=== PATIENT | male | born 1940 | race Caucasian/White ===

== ENCOUNTER 2020-05-17 07:07 | Inpatient (IN) | payer OTHER, SELFPAY ==
[~2020-05-17] VITALS: Ht 167.6 cm; Wt 77.1 kg
[2020-05-17 07:15] VITALS: BP 162/90
[2020-05-17] MEDS ORDERED: NACL 0.9% 1,000 ML IV ONE ×2 (07:25→15:25)
--- NOTE | 2020-05-17 07:45 | NUR ---
79 y/o male from home c/o abd pain with nausea and vomiting x 5 days. Per ems pts family states that he had coffee ground emesis with black tarry stools. States 10/10 mid abd pain. Denies cough/sob. Awake and alert. Positioned for comfort. medhx: HTN, DM
--- NOTE | 2020-05-17 07:46 | NUR ---
Lab drawing blood on patient at this time
[2020-05-17 08:08] LABS: HEMATOCRIT 46.5 % (36-52); HEMOGLOBIN 16.1 g/dL (12.0-18.0); MEAN CORPUSCULAR HEMOGLOBIN 30 pg (27-31); MEAN CORPUSCULAR HGB CONC 35 g/dL (33-37); MEAN CORPUSCULAR VOLUME 87.1 fL (80-94); PLATELET COUNT (AUTO) 212 K/uL (140-450); RED BLOOD CELL COUNT(AUTO) 5.34 MIL/uL (4.20-6.10); RED CELL DISTRIBUTION WIDTH 13.2 % (11.6-13.7); WHITE BLOOD COUNT (AUTO) 21.3 K/uL (4.8-10.8)
[2020-05-17 08:24] LABS: PROTHROMBIN TIME 11.8 secs (10.8-13.4)
[2020-05-17 08:26] LABS: ALBUMIN 3.7 g/dL (3.4-5.0); ANION GAP 19.2 (8-16); ASPARTATE AMINOTRANSFERASE 420 U/L (15-37); CARBON DIOXIDE 23.2 mmol/L (21-32); CHLORIDE 96 mmol/L (98-107); CREATININE 1.9 mg/dL (0.6-1.3); GLUCOSE 259 mg/dL (74-106); POTASSIUM 3.4 mmol/L (3.5-5.1); SODIUM SERUM 135 mmol/L (136-145); TOTAL BILIRUBIN 7.2 mg/dL (0.0-1.0); UREA NITROGEN, BLOOD 28 mg/dL (7-18)
[2020-05-17 08:30] LABS: LYMPHOCYTES % (MANUAL) 4 % (20-46); MONOCYTES % (MANUAL) 4 % (5-12)
[2020-05-17] MEDS ORDERED: PIPERACILLIN/TAZOBACTAM 3.375 GM in DEXTROSE 5% 50 ML IV ONE (08:40)
--- NOTE | 2020-05-17 08:46 | NUR ---
EMS TRANSFERRED TO BED 12
--- NOTE | 2020-05-17 09:32 | NUR ---
PT AOX1 TO NAME, BREATHING EVEN AND UNLABORED SPO2 90% ON RA, RR 29
[2020-05-17] MEDS ORDERED: ONDANSETRON 4 MG/2 ML VIAL ONE (09:35)
[2020-05-17] MEDS ORDERED: ONDANSETRON 4 MG/2 ML VIAL IVP ONE (09:35)
--- NOTE | 2020-05-17 09:35 | NUR ---
PT THREW UP BLOOD, DR RENE MADE AWARE
[2020-05-17] MEDS ORDERED: PIPERACILLIN/TAZOBACTAM 3.375 GM VIAL IV ONE (09:36)
--- NOTE | 2020-05-17 09:46 | NUR ---
COVID, FLU, AND EDDA SENT TO LAB
--- NOTE | 2020-05-17 12:00 | NUR ---
PT ALERT AND AWAKE, BREATHING EVEN AND UNLABORED
[2020-05-17] MEDS ORDERED: DEXT 5% / NACL 0.9% 500 ML IV ONE (13:55)
--- NOTE | 2020-05-17 14:00 | NUR ---
PT ALERT AND AWAKE, BREATHING EVEN AND UNLABORED
--- NOTE | 2020-05-17 15:00 | NUR ---
DR RENE REMINDED PT HR 130'S, BP 118/51
[2020-05-17 15:44] LABS: APPEARANCE,URINE SL CLOUDY (CLEAR); BILIRUBIN,URINE 3+ (NEGATIVE); BLOOD, URINE 3+ (NEGATIVE); COLOR,URINE ORANGE (YELLOW); LEUKOCYTE ESTERASE ,URINE NEGATIVE (NEGATIVE); NITRITE, URINE NEGATIVE (NEGATIVE); PH,URINE 5.5 (5.0-9.0); UGLUCOSE 1+ (NEGATIVE)
[2020-05-17] MEDS ORDERED: RENAL DOSING PER PHARMACY MC PRN (15:45)
[2020-05-17 16:38] LABS: COARSE GRANULAR CASTS,URINE 0-10 /LPF (None Seen); RBC,URINE 11-20 (MOD) /HPF (0-5); WBC,URINE 0-5 /HPF (0-5)
[2020-05-17] MEDS: POTASSIUM CHL 20 MEQ/D5-1/2NS 1,000 ML IV SCH (18:04)
--- NOTE | 2020-05-17 19:18 | NUR ---
REPORT GIVEN TO ZACK ARREGUIN, TRANSFER OF CARE AT THIS TIME
--- NOTE | 2020-05-17 19:19 | NUR ---
Report received from KALLIE Syed for continuation of care.
--- NOTE | 2020-05-17 19:38 | NUR ---
per verbal order from Dr. Garsia order ammonia patient at this time.
[2020-05-17 20:00] VITALS: BP 103/59
--- NOTE | 2020-05-17 20:10 | NUR ---
PT LAYING IN BED NAKED. PT REDRESSED AND REORIENTED TO ROOM. NO ACUTE DISTRESS NOTED. VSS.
--- NOTE | 2020-05-17 20:50 | NUR ---
tried called KALLIE Eli for report he is currently in a Covid room and will call me back in 5 minutes for report.
--- NOTE | 2020-05-17 20:56 | NUR ---
Patient will be admitted to care of Dr. Garsia. Admited to Telemetry. Will go to room 115. Belongings list completed. Report to KALLIE Eli.
[2020-05-17] MEDS ORDERED: PIPERACILLIN/TAZOBACTAM 3.375 GM in DEXTROSE 5% 50 ML IV SCH (21:00)
--- NOTE | 2020-05-17 21:30 | NUR ---
PT TRANSFERRED TO ROOM 115 VIA GURNEY BY 2 RNS. RECEIVING NURSE AT BEDSIDE W/ PT.
[2020-05-17] MEDS ORDERED: PIPERACILLIN/TAZOBACTAM 2.25 GM VIAL IV ONE (21:42)
[2020-05-17] MEDS: PIPERACILLIN/TAZOBACTAM 2.25 GM in DEXTROSE 5% 50 ML IV SCH (21:46)
[2020-05-17] MEDS: SENNA 8.6 MG TAB PO SCH (21:46)
[2020-05-17] MEDS ORDERED: LORazepam 2 MG/ML VIAL IM/IVP PRN (22:55)
[2020-05-17] MEDS ORDERED: HYDROcodone/APAP 5/325 MG 1 TAB TAB PO PRN (23:00)
--- NOTE | 2020-05-17 23:00 | NUR ---
PT CONFUSED AND KEEP ON TRYING TO GET OOB, UNABLE TO REDIRECT TO STAY ON BED, TEXTED DR BRADSHAW WITH NEW ORDERS, TIFFANY WRIST RESTRAINTS APPLIED ORDERED, WILL MONITOR Q2H PER PROTOCOL.
--- NOTE | 2020-05-17 23:40 | NUR ---
ALTAF CALLED AND UPDATED ON PT'S CONDITION, MADE AWARE THAT PT IS CONFUSED AND RESTRAINTS WAS APPLIED FOR PT SAFETY, PT ABLE TO TALK TO VIA CELLPHONE FOR A SHORT PERIOD OF TIME, RESUMED RESTRAINTS AFTERWARDS, MONITORED CLOSELY.
[2020-05-18] VITALS (22 sets, daily range): BP systolic 60–151; BP diastolic 28–89
[2020-05-18] MEDS ORDERED: LACTULOSE 20 GM/30 ML UDC PO ONE (00:58)
--- NOTE | 2020-05-18 01:10 | NUR ---
AMMONIA LEVEL OF 332, TEXTED DR BRADSHAW WITH NEW ORDERS, FIRST DOSE OF LACTULOSE PO GIVEN ORDERED, TOLERATED WELL, MAINTAINED ON NPO EXCEPT MEDS ORDERED.
[2020-05-18] MEDS ORDERED: MORPHINE SULFATE 2 MG/ML SYR IVP PRN (01:35)
[2020-05-18] MEDS ORDERED: LORazepam 2 MG/ML VIAL IM/IVP PRN (01:35)
[2020-05-18] MEDS ORDERED: MAG SULF 2000 MG/WATER PREMIX 50 ML IV PRN (01:35)
[2020-05-18] MEDS ORDERED: HYDROcodone/APAP 5/325 MG 1 TAB TAB PO PRN (01:35)
[2020-05-18] MEDS ORDERED: ACETAMINOPHEN 325 MG TAB PO PRN (01:35)
[2020-05-18] MEDS ORDERED: ONDANSETRON 4 MG/2 ML VIAL IM/IVP PRN (01:35)
[2020-05-18] MEDS: NACL 0.9% 1,000 ML IV SCH ×3 (01:35→19:36)
[2020-05-18] MEDS ORDERED: POTASSIUM CHLORIDE 10 MEQ TABER PO PRN (01:35)
[2020-05-18] MEDS ORDERED: DOCUSATE SODIUM 100 MG GELCAP PO PRN (01:35)
[2020-05-18] MEDS ORDERED: ZOLPIDEM 5 MG TAB PO PRN (01:35)
[2020-05-18] MEDS ORDERED: DEXTROSE 50% 50 ML SYR IVP PRN (01:45)
[2020-05-18] MEDS ORDERED: INSULIN LISPRO SLIDING SCALE 100 UNITS/ML VIAL SUBQ PRN (01:45)
[2020-05-18 02:43] LABS: BARBITURATE, URINE NEGATIVE ng/ml (NEG <=200); BENZODIAZEPINE, URINE NEGATIVE ng/mL (NEG <=200); CANNABINOID, URINE NEGATIVE ng/mL (NEG <=50); COCAINE, URINE NEGATIVE ng/mL (NEG <=300); OPIATE, URINE NEGATIVE ng/mL (NEG <=2000); PHENCYCLIDINE SCREEN,URINE NEGATIVE ng/mL (NEG <=25)
[2020-05-18] MEDS: POTASSIUM CHL 20 MEQ/D5-1/2NS 1,000 ML IV SCH (03:20)
--- NOTE | 2020-05-18 03:20 | NUR ---
PT AWAKE ON AND OFF, OCCASIONALLY PT TRIES TO TAKE OFF TELE MONITOR AND NASAL CANNULA, REDIRECT PT TO KEEP IT IN PLACE, CONTINUE ON TIFFANY SOFT WRIST RESTRAINTS, MONITORED CLOSELY.
[2020-05-18] MEDS ORDERED: PIPERACILLIN/TAZOBACTAM 2.25 GM VIAL IV ONE ×2 (04:37→21:02)
[2020-05-18] MEDS: PIPERACILLIN/TAZOBACTAM 2.25 GM in DEXTROSE 5% 50 ML IV SCH ×2 (04:45→21:00)
[2020-05-18] MEDS: BLOOD GLUCOSE MONITORING 1 DEV DEV FS SCH ×6 (07:02→21:17)
--- NOTE | 2020-05-18 07:08 | NUR ---
PATIENT HAS BEEN SCREENED AND CATEGORIZED HIGH NUTRITION RISK. PATIENT WILL BE SEEN WITHIN 1-2 DAYS OF ADMISSION. 05/18/20 - 05/19/20 OLENA QUINTERO MBA, RD
--- NOTE | 2020-05-18 07:20 | NUR ---
RECEIVED REPORT FROM NIGHT NURSE PATIENT IS AAOX2 NPO EXCEPTS MEDS FOR ERCP TODAY, SKIN INTACT WITH SCAB ON RIGHT ELBOW, INCONTINENT, LOOSE STOOL, ON 2LPM NC SATURATION AT 92-97%, IV INTACT ON RIGHT AC RUNNING D5NS +20MEQ POTASSIUM AT 80. ON SOFT WRIST RESTRAIN.SAFETY MEASURES IN PLACE AND CALL LIGHT WITHIN REACH. WILL CONTINUE TO MONITOR
[2020-05-18 07:58] LABS: ANION GAP 18.2 (8-16); CARBON DIOXIDE 21.9 mmol/L (21-32); CHLORIDE 101 mmol/L (98-107); CREATININE 3.3 mg/dL (0.6-1.3); GLUCOSE 100 mg/dL (74-106); POTASSIUM 3.1 mmol/L (3.5-5.1); SODIUM SERUM 138 mmol/L (136-145); UREA NITROGEN, BLOOD 58 mg/dL (7-18)
[2020-05-18 08:06] LABS: ALBUMIN 2.6 g/dL (3.4-5.0); BILIRUBIN,DIRECT 5.5 mg/dL (0.0-0.3); TOTAL BILIRUBIN 6.4 mg/dL (0.0-1.0)
[2020-05-18 08:21] LABS: CHOL/HDL RATIO 8.6 (1-4.5); MAGNESIUM 2.2 mg/dL (1.8-2.4); PHOSPHORUS 4.5 mg/dL (2.5-4.9); THYROID STIMULATING HORMONE 1.18 uIU/mL (0.34-3.74)
[2020-05-18] MEDS: LACTULOSE 20 GM/30 ML UDC PO SCH ×2 (08:26→21:00)
[2020-05-18] MEDS: PANTOPRAZOLE 40 MG TABEC PO SCH (08:26)
[2020-05-18] MEDS: SENNA 8.6 MG TAB PO SCH (08:26)
--- NOTE | 2020-05-18 08:30 | NUR ---
MEDICATION DUE GIVEN AND CHECK VITAL SIGNS PRIOR TO MEDICATION BP 140/83 IA 71. DID A BLADDER SCAN [address] COLLADO ORDER AND IS AWARE.
--- NOTE | 2020-05-18 08:50 | NUR ---
RECEIVED CRITICAL LAB TROPONIN 0.192 DR NEGRON AWARE. NO ORDERS RECEIVED.
[2020-05-18] MEDS ORDERED: LACTULOSE 20 GM/30 ML UDC PO SCH (09:00)
--- NOTE | 2020-05-18 11:17 | NUR ---
SOCIAL WORK NOTE: Patient's Orientation Unable To Assess Information Provided By ALTAF BOCANEGRA - Comments SW WAS UNABLE TO MEET APTIENT AT BEDSIDE TO COMPLETE ASSESSMENT. Automatic Shirring Machine Operator, Realtionship and Phone Number ALTAF [facility] [phone] Healthcare Power of Cake Icer And Packer No Does Patient Have a POLST No Identifying Problems No Social Work Triggers Is A Social Work Consult Needed No Mandate Report Filed No Explanation Of Identifying Problems PATIENT IS AN 79-YEAR-OLD MALE ADMITTED FOR SEPSIS AND HEPATATIS. PATIENT HAS PMHX OF DM AND HTN. NO HX OF MENTAL HEALTH OR SUBSTANCE ABUSE REPORTED. Admitted From Home Pre-Admission Level Of Functioning Status Independent/Ambulatory Prior Resources/Services Used In Last 12 Months No Prior Resources Used Prior DME Walker Dialysis Comments N/A Living Situation Lives With Family House Patient Had Caregiver No Home Support No Caregiver Issues Financial Issues No Known Financial Issue Referral To The Financial Counselor Needed No Factors/Needs No D/C Needs Identified Pt/Rep Participated In Discharge Plan Yes Patient/Family Agress With Discharge Plan Yes Discharge Plan Comments TENTATIVE DISCHARGE PLAN IS FOR PATIENT TO RETURN HOME. DC Plan Status Initiated
--- NOTE | 2020-05-18 11:30 | NUR ---
BLOOD SUGAR 94MG/DL NO INSULIN COVERAGE GIVEN
--- NOTE | 2020-05-18 12:03 | NUR ---
POTASSIUM LEVEL AT 3.1 GAVE K DUR AT 40MEQ.
--- NOTE | 2020-05-18 12:22 | NUR ---
PATIENT OUT IN HIS ROOM FOR A PROCEDURE ERCP. PT IS STABLE
[2020-05-18 13:26] LABS: HEMATOCRIT 41.5 % (36-52); HEMOGLOBIN 14.3 g/dL (12.0-18.0); MEAN CORPUSCULAR HEMOGLOBIN 30 pg (27-31); MEAN CORPUSCULAR HGB CONC 34 g/dL (33-37); MEAN CORPUSCULAR VOLUME 87.2 fL (80-94); RED BLOOD CELL COUNT(AUTO) 4.75 MIL/uL (4.20-6.10); RED CELL DISTRIBUTION WIDTH 13.7 % (11.6-13.7)
[2020-05-18 13:27] LABS: LYMPHOCYTES % (MANUAL) 7 % (20-46); MONOCYTES % (MANUAL) 9 % (5-12); PLATELET COUNT (AUTO) 105 K/uL (140-450)
--- NOTE | 2020-05-18 14:20 | NUR ---
DC RADIATOR SPECIALIST: RECEIVED ORDER FOR SNF EVAL. SPOKE TO PATIENTS ALTAF SHE IS AGREEABLE TO HER GOING TO A SNF. SHE DOES NOT HAVE A PREFERENCE. Addendum: 05/19/20 at 1241 by Ida Osorio CM THIS IS AN 79 Y/O MALE PATIENT, BIBA FROM HOME DUE TO ABDOMINAL PAIN. PAST MEDICAL HISTORY INCLUDE DM, HTN. INITIAL DIAGNOSIS OF SEPSIS, HEPATITIS. CURRENT LABS INCLUDE WBC 29.2, H/H 14.0/37.2, NA/K 133/4.1, BUN/CREA 66/3.7. ORALLY INTUBATED TO VENT, FIO2 28%, PEEP 5, O2 SAT 98%. SEDATED WITH PROPOFOL. ON ZOSYN, VANCOMYCIN. S/P ERCP 05/17/[address] ABDI. SEEN BY NEPHRO - CR WORSENING WITH DECREASING UOP, FAMILY WOULD NOT WANT DIALYSIS. DC PLAN PENDING ON PATIENT'S RESPONSE TO TREATMENT. Addendum: 05/25/20 at 1259 by Farzaneh Fierro CM DC RADIATOR SPECIALIST: RECEIVED ORDER FOR SNF [facility]. SPOKE TO PATIENTS SAHRA, ALTAF [phone] TO DISCUSS SNF, SHE IS AGREEABLE AND HAS NO PREFERENCE. WILL FAX TO [facility]. Addendum: 05/25/20 at 1301 by Farzaneh Fierro CM DC RADIATOR SPECIALIST: ALSO FAXED TO [facility] THEY CAN NOT ACCEPT AT THIS TIME. Addendum: 05/25/20 at 1626 by Farzaneh Collinseda CM DC RADIATOR SPECIALIST: YELENA NELSON AT [facility] PATIENT HAS BEEN ACCEPTED ROOM 28-[address] DR[address] BRADSHAW. YELENA NELSON WE CAN BILL THEM FOR TRANSPORTATION. SPOKE TO MACIEJ FROM [employer] [phone] TO SET UP TRANSPORTATION. BUNGY JUMP MASTER TIME IS 7:00 PM. NOTIFIED KALLIE DELGADO AND PATIENTS . Addendum: 05/25/20 at 1630 by Farzaneh Fierro CM JELANI RADIATOR SPECIALIST: [facility] [address] [place] [address] BRADSHAW
[2020-05-18] MEDS ORDERED: LABETALOL 100 MG/20 ML VIAL ONE (14:36)
[2020-05-18] MEDS ORDERED: LABETALOL 100 MG/20 ML VIAL IV PRN (14:40)
[2020-05-18] MEDS ORDERED: NOREPINEPHRINE 4 MG in DEXTROSE 5% 250 ML IV PRN ×2 (14:55→15:50)
[2020-05-18] MEDS ORDERED: POTASSIUM CHLORIDE 20% 40 MEQ/15 ML UDC GT SCH (15:00)
--- NOTE | 2020-05-18 15:05 | NUR ---
STAT INTUBATION IN RECOVERY ROOM Coleen SANTAMARIA RCP AND Lasha LÓPEZ RCP ATTENDING
--- NOTE | 2020-05-18 15:10 | NUR ---
SUCCESSFULLY INTUBATED BY DR. MOORE WITH AN ENDOTRACHEAL TUBE #8.0 SECURED AT 24cm TEETH/GUM LINE WITH A WELCON TRACHTAPE PLACEMENT CONFIRMED WITH A CO2 DETECTOR COLOR CHANGE YELLOW AUSCULTATION TO BILATERAL LUNG HARRIS CHEST XRAY TO FOLLOW PLACED ON A GE CARESCAPE R860 WITH COMPRESSOR ON AND FUNCTIONING WELL PLUGGED INTO RED OUTLET TOLERATING WELL WITHOUT ADVERSE REACTIONS NOTED GOOD EQUAL CHEST RISE AIRWAY PATENT
[2020-05-18] MEDS ORDERED: PROPOFOL 1000 MG/100 ML PREMIX 100 ML IV ONE (15:29)
[2020-05-18] MEDS ORDERED: DILTIAZEM 25 MG/5 ML VIAL IVP ONE (15:44)
--- NOTE | 2020-05-18 15:54 | NUR ---
P.T. NOTES HOLD P.T. EVAL, Pt NOT AVAILABLE [facility] PROCEDURE.
[2020-05-18] MEDS ORDERED: DOPamine 400 MG/D5W PREMIX 250 ML IV PRN (15:55)
[2020-05-18] MEDS ORDERED: DOPamine 400 MG/D5W PREMIX 250 ML IV ONE (15:58)
[2020-05-18] MEDS ORDERED: DILTIAZEM 25 MG/5 ML VIAL IVP SCH (16:00)
[2020-05-18] MEDS: PROPOFOL 1000 MG/100 ML PREMIX 100 ML IV PRN ×2 (16:13→21:00)
--- NOTE | 2020-05-18 16:30 | NUR ---
MD MOORE INSERTED LEFT RADIAL ARTERIAL LINE AT BEDSIDE. PT SEDATED ON PROPOFOL GTT. FLACC 1. RASS -2.
--- NOTE | 2020-05-18 17:00 | NUR ---
Banerjee catheter placed by Mabel, OR Nurse. Clear, david urine. no output.
[2020-05-18] MEDS ORDERED: NACL 0.9% 1,000 ML IV ONE (17:10)
[2020-05-18] MEDS ORDERED: KCL 20 MEQ/WATER INJ PREMIX 100 ML IV ONE (17:43)
[2020-05-18] MEDS ORDERED: NOREPINEPHRINE 4 MG/4 ML VIAL IV ONE ×2 (17:54→19:39)
[2020-05-18] MEDS ORDERED: VANCOMYCIN PER PHARMACY MC PRN (17:55)
[2020-05-18] MEDS ORDERED: KCL 20 MEQ/WATER INJ PREMIX 100 ML IV SCH (18:00)
[2020-05-18] MEDS ORDERED: PHENYLEPHRINE 10 MG/ML VIAL ONE ×2 (19:00→19:38)
--- NOTE | 2020-05-18 19:00 | NUR ---
RECEIVED REPORT FROM DYLAN ARREGUIN FOR CONTINUITY OF CARE. Addendum: 05/19/20 at 0226 by Karina Reese RN FROM [facility] ARREGUIN
--- NOTE | 2020-05-18 19:10 | NUR ---
ASSUMED CARE OF PT.INITIAL ASSESSMENT COMPLETED.PT SEDATED.ORALLY INTUBATED AC/VC FIO2 100% TV 500 RATE 12 NO PEEP.W/PERIPHERAL IV TO RT EJ G18 INFUSING LEVOPHED 4MG IN 250ML D5W AT 30MCG/MIN, RT HAND G22 INFUSING PROPOFOL 40MCG/KG/MIN DRY WT 81 KG, LT AC G20 INTACT INFUSING ORDERED IVF AND K RIDER.W/LT RADIAL ARTERIAL LINE INTACT.PT MAINTAINED ON NPO.W/GALLAGHER CATHETER TO BSD DRAINING SMALL AMT OF DARK MILTON URINE.W/ABRASION TO LT LEG.FLACC 0
[2020-05-18] MEDS ORDERED: PHENYLEPHRINE 10 MG in NACL 0.9% 250 ML IV PRN (19:15)
--- NOTE | 2020-05-18 19:24 | NUR ---
PHONE CALL TO DR LEE, PTS BP STILL LOW PT ALREADY MAX DOSE WITH LEVOPHED, NETO SYNEPHRINE ORDERED.CARRIED OUT
[2020-05-18 19:29] LABS: ANION GAP 13.6 (8-16); CARBON DIOXIDE 23.1 mmol/L (21-32); CHLORIDE 103 mmol/L (98-107); CREATININE 0.9 mg/dL (0.6-1.3); GLUCOSE 169 mg/dL (74-106); POTASSIUM 4.7 mmol/L (3.5-5.1); SODIUM SERUM 135 mmol/L (136-145); UREA NITROGEN, BLOOD 28 mg/dL (7-18)
[2020-05-18] MEDS ORDERED: VANCOMYCIN 1,000 MG in DEXTROSE 5% 250 ML IV SCH (19:30)
[2020-05-18] MEDS ORDERED: VANCOMYCIN 1,000 MG VIAL ONE (19:36)
--- NOTE | 2020-05-18 21:00 | NUR ---
PHONE CALL TO DR MARCIAL, MADE AWARE PT ON HEPARIN SUBQ; PLT 105; DR MARCIAL SAID TO HOLD HEPARIN DOSE TONIGHT.SHE WAS ALSO AWARE OF THE BLOOD CULTURE RESULT AND AWARE PT ON ZOSYN AND VANCOMYCIN, NO NEW ORDERS
--- NOTE | 2020-05-18 22:13 | NUR ---
TITRATED FiO2 TO 80%. SPO2 100%. RT NOTIFIED. WILL CONTINUE TO MONITOR PT.
--- NOTE | 2020-05-18 22:45 | NUR ---
PT TAKEN TO CT FOR CT OF HEAD WITH RT AND RN AT BEDSIDE.
--- NOTE | 2020-05-18 23:15 | NUR ---
PT BROUGHT TO ICU FROM PACU AT THIS TIME. ETT TO VENT ON PRESCRIBED SETTINGS. SEDATED TO RASS -3, PER MD ORDERS. PUPILS 3 MM, PERRL, SLUGGISH. 20G PERIPHERAL IV TO LT WRIST INFUSING PROPOFOL AND LEVOPHED. SEE IV FLOW SHEET FOR RATES. LUNGS COARSE THROUGHOUT. +S1, S2 UPON AUSCULTATION. AFIB ON MONITOR. BOWEL SOUNDS ACTIVE. NO ABD DISTENTION NOTED. GALLAGHER IN PLACE DRAINING CLEAR, YELLOW URINE TO GRAVITY. ECCHYMOSIS TO LT FA. SCRAPE LIKE ABRASION NOTED TO LT MCMILLAN. SAFETY PRECAUTIONS IN PLACE WITH BED LOW AND LOCKED. HOB >30 DEGREES. WILL CONT TO MONITOR.
[2020-05-19] VITALS (37 sets, daily range): BP systolic 87–124; BP diastolic 47–71
[2020-05-19] MEDS: PROPOFOL 1000 MG/100 ML PREMIX 100 ML IV PRN ×4 (00:08→18:45)
--- NOTE | 2020-05-19 00:09 | NUR ---
TITRATED FiO2 TO 70%. SPO2 100%. RT NOTIFIED. WILL CONTINUE TO MONITOR PT.
[2020-05-19] MEDS ORDERED: NOREPINEPHRINE 4 MG/4 ML VIAL IV ONE (00:21)
--- NOTE | 2020-05-19 03:43 | NUR ---
TITRATED FiO2 TO 50%. SPO2 100%. RT NOTIFIED. WILL CONTINUE TO MONITOR PT.
[2020-05-19] MEDS ORDERED: PIPERACILLIN/TAZOBACTAM 3.375 GM VIAL IV ONE (05:06)
[2020-05-19 05:22] LABS: HEMATOCRIT 37.2 % (36-52); MEAN CORPUSCULAR HEMOGLOBIN 33 pg (27-31); MEAN CORPUSCULAR HGB CONC 38 g/dL (33-37); MEAN CORPUSCULAR VOLUME 88.6 fL (80-94); PLATELET COUNT (AUTO) 112 K/uL (140-450); RED CELL DISTRIBUTION WIDTH 14.2 % (11.6-13.7)
[2020-05-19 05:25] LABS: PHOSPHORUS 4.1 mg/dL (2.5-4.9)
[2020-05-19 05:26] LABS: ANION GAP 18.3 (8-16); CARBON DIOXIDE 16.8 mmol/L (21-32); CHLORIDE 102 mmol/L (98-107); CREATININE 3.7 mg/dL (0.6-1.3); GLUCOSE 169 mg/dL (74-106); POTASSIUM 4.1 mmol/L (3.5-5.1); SODIUM SERUM 133 mmol/L (136-145)
[2020-05-19] MEDS: PIPERACILLIN/TAZOBACTAM 3.375 GM in DEXTROSE 5% 50 ML IV SCH ×6 (05:31→23:13)
[2020-05-19 06:14] LABS: WHITE BLOOD COUNT (AUTO) 29.2 K/uL (4.8-10.8)
[2020-05-19 06:16] LABS: UREA NITROGEN, BLOOD 66 mg/dL (7-18)
[2020-05-19] MEDS: BLOOD GLUCOSE MONITORING 1 DEV DEV FS SCH ×4 (06:31→20:13)
[2020-05-19 06:37] LABS: LYMPHOCYTES % (MANUAL) 4 % (20-46); MONOCYTES % (MANUAL) 6 % (5-12)
[2020-05-19 08:19] LABS: T4 (THYROXINE) 5.6 ug/dL (4.5-12.0)
[2020-05-19] MEDS: PANTOPRAZOLE 40 MG TABEC PO SCH (08:46)
[2020-05-19] MEDS: LACTULOSE 20 GM/30 ML UDC PO SCH ×2 (08:46→20:13)
--- NOTE | 2020-05-19 09:18 | NUR ---
05/19/20 RD INITIAL ASSESSMENT COMPLETED PLEASE REFER TO NUTRITION ASSESSMENT UNDER CARE ACTIVITY FOR ESTIMATED NUTRITIONAL NEEDS. RD RECOMMENDATIONS: 1. RECOMMEND D/C 60GM CCHO DIET. 2. RECOMMEND TF NEPRO @40MLS/HR. TF WILL PROVIDE 1728KCALS, 78GM PROTEIN - SUFFICIENT TO MEET 100% ESTIMATED NEEDS. 3. START TF @ 30MLS/HR. ADVANCE WHEN TOLERATED BY 10MLS/HR TO GOAL RATE OF 40MLS/HR.(NOTE FOR A GOAL RATE OF 40MLS/HR, 9 DROPS PER MINUTE IS THE FLOW RATE IN CASE OF GRAVITY FEEDING NEEDED). 4.RECOMMEND WATER FLUSH 100MLS Q8 HRS. 5.F/U 2-3 DAYS; HIGH RISK. OLENA QUINTERO MBA, RD
[2020-05-19] MEDS: NACL 0.9% 1,000 ML IV SCH ×4 (11:25→23:14)
--- NOTE | 2020-05-19 14:10 | NUR ---
DR ABDI AT BEDSIDE FOR EVAL
--- NOTE | 2020-05-19 14:26 | NUR ---
P.T. NOTES HOLD P.T. EVAL, Pt TRANSFERRED TO ICU; WILL AWAIT NEW ORDER WHEN APPROPRIATE.
--- NOTE | 2020-05-19 15:25 | NUR ---
PT RETURNED FROM CT ABD/PELVIS, PLACED BACK ON MONITOR, ART LINE ZERO'D, VITALS STABLE, NO ISSUES
--- NOTE | 2020-05-19 16:30 | NUR ---
LEVOPHED TURNED OFF
--- NOTE | 2020-05-19 18:00 | NUR ---
BED BATH GIVEN, SOFT STOOL X1, PERICARE DONE.
--- NOTE | 2020-05-19 19:30 | NUR ---
ASSUMED CARE OF PT.INITIAL ASSESSMENT COMPLETED.A FIB NOTED ON MONITOR.PT SEDATED.ORALLY INTUBATED AC/VC FIO2 24% TV 500 RATE 12 PEEP 5.W/PERIPHERAL IV TO LT AC G20 INFUSING PROPOFOL 25 MCG/KG/MIN ,DRY WT 81 KG AND ORDERED IVF.W/LT RADIAL ARTERIAL LINE INTACT.PT MAINTAINED ON NPO.W/OGT ALREADY IN PLACE.WILL START FEEDING ORDERED.W/GALLAGHER CATHETER TO BSD DRAINING SMALL AMT OF LIGHT MILTON URINE.W/ABRASION TO LT LEG.AND SCAB TO RT ELBOW NOTED.FLACC 0
--- NOTE | 2020-05-19 20:00 | NUR ---
ORAL CARE USING VAP KIT RENDERED.PT ON DAILY PROTONIX FOR GI PROPHYLAXIS AND HEPARIN FOR DVT PROPHYLAXIS.REPOSITIONED.FLACC 0
--- NOTE | 2020-05-19 21:14 | NUR ---
CALLED DR. MARCIAL AND INFORMED HER ABOUNT CHANGE IN MODE FROM AC/VC TO AC/PRVC DUE TO LOW PEAK PRESSURES ON VC. VENT AND ABG ORDERS OBTAINED. PER DR. MARCIAL, ORDERED RN TO PUT LIBRARY HELPER CONSULTATION.
--- NOTE | 2020-05-19 21:57 | NUR ---
CALLED DR. POZO AND REPORTED ABG RESULTS. NO CHANGES OR ORDERS MADE AT THIS TIME. WILL CONTINUE TO MONITOR.
--- NOTE | 2020-05-19 23:46 | NUR ---
PHONE CALL FROM PTS FAMILY; UPDATED ON PTS PRESENT CONDITION.QUESTIONS ANSWERED.
[2020-05-20] VITALS (40 sets, daily range): BP systolic 95–157; BP diastolic 46–113
--- NOTE | 2020-05-20 00:30 | NUR ---
ORAL CARE DONE.PT REPOSITIONED.FLACC 0.STILL SEDATED RASS-3
[2020-05-20] MEDS: PROPOFOL 1000 MG/100 ML PREMIX 100 ML IV PRN ×2 (01:19→20:15)
--- NOTE | 2020-05-20 02:30 | NUR ---
PTS CONDITION REMAINS UNCHANGED.FLACC 0.RASS -3 ON PROPOFOL DRIP; REPOSITIONED.
--- NOTE | 2020-05-20 05:01 | NUR ---
MORNING CARE DONE.ORAL CARE RENDERED.PT CONVERTED TO SINUS ARRHYTHMIA FROM ATRIAL FIBRILLATION.FLACC 0
[2020-05-20] MEDS: PIPERACILLIN/TAZOBACTAM 3.375 GM in DEXTROSE 5% 50 ML IV SCH (06:01)
[2020-05-20] MEDS: BLOOD GLUCOSE MONITORING 1 DEV DEV FS SCH ×4 (06:02→20:52)
[2020-05-20 07:37] LABS: MAGNESIUM 2.3 mg/dL (1.8-2.4); PHOSPHORUS 3.5 mg/dL (2.5-4.9)
--- NOTE | 2020-05-20 07:40 | NUR ---
RECEIVED BEDSIDE REPORT FROM MARKING MACHINE TENDER NURSE, PT SEDATED RASS -3. DRY WEIGHT 81KG. ETT TO VENT AC/PC FIO2 24%, TV 500,RATE 12, PEEP 5, SATURATING 93%, NO SOB NOTED, EQUAL BILATERAL CHEST RISE AND FALL, PIV 20G TO L AC, PATENT INTACT, INFUSING PROPOFOL @ 25MCG/KG/MIN, LEFT RADIAL ARTLINE IN PLACE, DRESSINGS CLEAN DRY AND INTACT. ZERO'D PER PROTOCOL, OGT IN PLACE WITH FEEDING GLUCERNA @20ML/HR , TOLERATING WELL, GALLAGHER CATH IN PLACE DRAINING MILTON URINE TO GRAVITY, INITIAL ASSESSMENT DONE, ALL SAFETY MEASURES IN PLACE, PLAN OF CARE REVIEWED, WILL CONTINUE TO MONITOR.
[2020-05-20 07:42] LABS: ANION GAP 17.2 (8-16); CARBON DIOXIDE 16.6 mmol/L (21-32); CHLORIDE 107 mmol/L (98-107); GLUCOSE 112 mg/dL (74-106); POTASSIUM 3.8 mmol/L (3.5-5.1); SODIUM SERUM 137 mmol/L (136-145)
[2020-05-20] MEDS: NACL 0.9% 1,000 ML IV SCH ×2 (07:57→18:25)
[2020-05-20 08:31] LABS: CREATININE 4.1 mg/dL (0.6-1.3); UREA NITROGEN, BLOOD 72 mg/dL (7-18)
[2020-05-20] MEDS: LACTULOSE 20 GM/30 ML UDC PO SCH ×2 (08:58→11:35)
[2020-05-20] MEDS: PANTOPRAZOLE 40 MG TABEC PO SCH (08:59)
[2020-05-20] MEDS ORDERED: FAMOTIDINE 20 MG TAB PO SCH (09:00)
--- NOTE | 2020-05-20 09:20 | NUR ---
AM MEDS GIVEN, AWAITING LAB RESULTS FOR HEPARIN SQ, LARGE LOOSE BM, PERICARE DONE.
--- NOTE | 2020-05-20 10:08 | NUR ---
HEART RHYTHM BACK IN AFIB RVR AT 134, BP 138/63, DR JUÁREZ PAGED AND CALLED BACK, ORDER FOR METOPROLOL 5MG I INFANTRY SENIOR SERGEANT X1
[2020-05-20] MEDS ORDERED: METOPROLOL 5 MG/5 ML VIAL IV SCH ×2 (10:10→18:30)
[2020-05-20] MEDS ORDERED: VANCOMYCIN 1,000 MG in DEXTROSE 5% 250 ML IV SCH (11:30)
[2020-05-20] MEDS ORDERED: PIPERACILLIN/TAZOBACTAM 3.375 GM in DEXTROSE 5% 50 ML IV SCH (11:35)
--- NOTE | 2020-05-20 11:56 | NUR ---
PT REMAINS IN AFIB RVR AT 130 AFTER METOPROLOL, DR JUÁREZ PAGEDany AGAIN
[2020-05-20 12:00] LABS: BASOPHILS % (AUTO) 0.4 % (0.0-2.0); EOSINOPHILS # (AUTO) 0.1 K/uL (0-0.4); EOSINOPHILS % (AUTO) 1.1 % (0.0-4.0); HEMATOCRIT 37.8 % (36-52); LYMPHOCYTES # (AUTO) 0.5 K/uL (2.0-11.5); MEAN CORPUSCULAR HEMOGLOBIN 30 pg (27-31); MEAN CORPUSCULAR HGB CONC 34 g/dL (33-37); MEAN CORPUSCULAR VOLUME 87.8 fL (80-94); MONOCYTES # (AUTO) 0.4 K/uL (0.8-1.0); MONOCYTES % (AUTO) 2.9 % (1.7-9.3); NEUTROPHILS # (AUTO) 11.7 K/uL (1.8-7.7); NEUTROPHILS % (AUTO) 91.6 % (42.2-75.2); PLATELET COUNT (AUTO) 57 K/uL (140-450); WHITE BLOOD COUNT (AUTO) 12.8 K/uL (4.8-10.8)
[2020-05-20] MEDS ORDERED: FUROSEMIDE 20 MG/2 ML VIAL IVP SCH (12:00)
[2020-05-20] MEDS: METOPROLOL 25 MG TAB PO SCH ×2 (12:20→20:53)
[2020-05-20] MEDS: metroNIDAZOLE 500 MG TAB PO SCH ×2 (13:00→17:00)
[2020-05-20] MEDS: PIPERACILLIN/TAZOBACTAM 2.25 GM in DEXTROSE 5% 50 ML IV SCH ×2 (13:00→20:53)
[2020-05-20] MEDS ORDERED: PROPRANOLOL 20 MG TAB NG SCH (13:00)
--- NOTE | 2020-05-20 15:02 | NUR ---
PERSONAL BELONGINGS INCLUDING FLIP CELL PHONE OBTAINED FROM SECURITY, LABELED AND PLACED IN ROOM, CALLED SO SHE CAN SPEAK TO THE PT ON THE PHONE.
[2020-05-20] MEDS ORDERED: METOPROLOL 25 MG TAB ONE (15:48)
--- NOTE | 2020-05-20 18:02 | NUR ---
PT IN AFIB RVR AGAIN AT 134, DR RUELAS MADE AWARE, ORDER FOR METOPROLOL 5MG IVP RECIVED
[2020-05-20] MEDS ORDERED: Z-GUARD PASTE TP ONE (18:29)
--- NOTE | 2020-05-20 19:30 | NUR ---
REPORT RECEIVED FROM AM SHIFT RN FOR CONTINUITY OF CARE. PT ETT TO VENT. SEDATED RASS -3. ON AC PRVC MODE. FIO2 24%, TV 500, RATE 12, PEEP 5. AFIB ON MONITOR. IV SITE L RADIAL ARTERIAL LINE AND LAC 20G INFUSING PROPOFOL 20 MCG/KG/MIN, AND NS 70ML/HR. OGT TO FEEDING. 0 RESIDUALS NOTED. GALLAGHER CATHETER IN PLACE. HOB 30 DEGREES, BED LOCKED IN LOWEST POSITION. WILL CONTINUE TO MONITOR.
[2020-05-20] MEDS ORDERED: CRUSHER, PILL MC ONE (21:07)
--- NOTE | 2020-05-20 22:14 | NUR ---
ORAL CARE PROVIDED, O2 SATURATION 99%. WILL CONTINUE TO MONITOR.
[2020-05-20 22:19] LABS: ASPARTATE AMINOTRANSFERASE 232 U/L (15-37); TOTAL BILIRUBIN 5.1 mg/dL (0.0-1.0)
[2020-05-20 22:20] LABS: ALBUMIN 1.6 g/dL (3.4-5.0); LIPASE 39 U/L (73-393)
[2020-05-21] VITALS (65 sets, daily range): BP systolic 115–172; BP diastolic 51–122
--- NOTE | 2020-05-21 00:12 | NUR ---
PT SEDATED, RASS -3. RESPIRATIONS EVEN AND UNLABORED. CHEST RISE IS SYMMETRICAL. SAFETY PRECAUTIONS IN PLACE. BED LOCKED IN LOWEST POSITION. WILL CONTINUE TO MONITOR.
[2020-05-21] MEDS: Z-GUARD PASTE TP SCH ×2 (01:00→13:00)
--- NOTE | 2020-05-21 02:20 | NUR ---
PT SEDATED, RASS -3. RESPIRATIONS EVEN AND UNLABORED, CHEST RISE IS SYMMETRICAL. WILL CONTINUE TO MONITOR.
--- NOTE | 2020-05-21 03:37 | NUR ---
PT HAD 1 BM. PT CLEANED, REPOSITIONED. ORAL CARE PROVIDED. WILL CONTINUE TO MONITOR.
--- NOTE | 2020-05-21 04:28 | NUR ---
PT IN AFIB. DR MARCIAL MADE AWARE. ORDERS TO GIVE 5 MG METOPROLOL IVP.
[2020-05-21] MEDS ORDERED: METOPROLOL 5 MG/5 ML VIAL ONE (04:30)
[2020-05-21] MEDS ORDERED: METOPROLOL 5 MG/5 ML VIAL IV SCH (04:30)
[2020-05-21] MEDS: PIPERACILLIN/TAZOBACTAM 2.25 GM in DEXTROSE 5% 50 ML IV SCH ×3 (04:32→21:07)
[2020-05-21] MEDS: PROPOFOL 1000 MG/100 ML PREMIX 100 ML IV PRN ×3 (05:35→23:22)
--- NOTE | 2020-05-21 05:50 | NUR ---
LAB AT BEDSIDE
--- NOTE | 2020-05-21 06:02 | NUR ---
CALLED DR MARCIAL. MADE AWARE OF PT STILL IN AFIB. NO ORDERS RECEIVED. STATED WILL SPEAK WITH GRINDING MACHINE OPERATOR AUTOMATIC IN THE AM.
[2020-05-21] MEDS: LANSOPRAZOLE 30 MG CAPDR PO SCH (06:20)
[2020-05-21 06:37] LABS: BASOPHILS % (AUTO) 0.2 % (0.0-2.0); EOSINOPHILS # (AUTO) 0.1 K/uL (0-0.4); EOSINOPHILS % (AUTO) 0.7 % (0.0-4.0); HEMATOCRIT 38.6 % (36-52); HEMOGLOBIN 13.4 g/dL (12.0-18.0); LYMPHOCYTES # (AUTO) 0.5 K/uL (2.0-11.5); LYMPHOCYTES % (AUTO) 4.8 % (20.5-51.1); MEAN CORPUSCULAR HEMOGLOBIN 31 pg (27-31); MEAN CORPUSCULAR HGB CONC 35 g/dL (33-37); MEAN CORPUSCULAR VOLUME 87.5 fL (80-94); MONOCYTES # (AUTO) 0.7 K/uL (0.8-1.0); MONOCYTES % (AUTO) 6.5 % (1.7-9.3); NEUTROPHILS # (AUTO) 9.3 K/uL (1.8-7.7); NEUTROPHILS % (AUTO) 87.8 % (42.2-75.2); PLATELET COUNT (AUTO) 68 K/uL (140-450); RED BLOOD CELL COUNT(AUTO) 4.41 MIL/uL (4.20-6.10); RED CELL DISTRIBUTION WIDTH 14.2 % (11.6-13.7); WHITE BLOOD COUNT (AUTO) 10.6 K/uL (4.8-10.8)
--- NOTE | 2020-05-21 07:12 | NUR ---
REPORT GIVEN TO AM SHIFT RN FOR CONTINUITY OF CARE
[2020-05-21 07:15] LABS: MAGNESIUM 2.3 mg/dL (1.8-2.4); PHOSPHORUS 4.2 mg/dL (2.5-4.9)
[2020-05-21] MEDS: BLOOD GLUCOSE MONITORING 1 DEV DEV FS SCH ×4 (07:30→21:06)
[2020-05-21 07:33] LABS: ANION GAP 17.3 (8-16); CARBON DIOXIDE 17.3 mmol/L (21-32); CHLORIDE 106 mmol/L (98-107); GLUCOSE 145 mg/dL (74-106); POTASSIUM 3.6 mmol/L (3.5-5.1); SODIUM SERUM 137 mmol/L (136-145)
[2020-05-21 07:58] LABS: CREATININE 4.2 mg/dL (0.6-1.3); UREA NITROGEN, BLOOD 75 mg/dL (7-18)
--- NOTE | 2020-05-21 08:00 | NUR ---
RECEIVED BEDSIDE REPORT FROM STRATEGIC MANAGER NURSE, RASS -3, PT IS ETT TO VENT AC PRVC FIO2 24%, TV 500, RATE 12, PEEP 5, SATURATING @ 100%. S1S2 NOTED UPON AUSCULTATION, PT HAS PT HAS LT AC 20g RUNNING PROPOFOL 25 MCG/KG/MIN, ASYMPTOMATIC AND PATENT. PT HAS LT RADIAL ARTERIAL LINE, ASYMPTOMATIC. BOWEL SOUNDS ACTIVE IN ALL 4 QUADRANTS. OG-TUBE TO FEED, GLUCERNA 1.2 RUNNING AT 40ML/HR, FWF: 100 Q6HR, RESIDUAL: 0ML. GALLAGHER CATH IN PLACE DRAINING TO GRAVITY. SKIN WARM DRY, SKIN: SCATTERED BRUISING TO BILATERAL UPPER AND LOWER EXTREMITIES. SAFETY MEASURES IN PLACE, BED LOW AND LOCKED, SIDE RAILS UP, CALL LIGHT WITHIN REACH, WILL CONTINUE TO MONITOR.
--- NOTE | 2020-05-21 08:10 | NUR ---
RECEIVED CRITICAL LAB, PAGED DR TOVAR. DR JAQUEZ MEMBERSHIP ADMINISTRATOR, AND EXPLAINED BUN 75 AND CREATININE 4.2, NO NEW ORDERS AT THIS TIME.
[2020-05-21] MEDS: NACL 0.9% 1,000 ML IV SCH (08:40)
[2020-05-21] MEDS: LACTULOSE 20 GM/30 ML UDC PO SCH (08:56)
[2020-05-21] MEDS: metroNIDAZOLE 500 MG TAB PO SCH ×3 (08:56→17:23)
[2020-05-21] MEDS: METOPROLOL 25 MG TAB PO SCH ×2 (08:57→21:08)
--- NOTE | 2020-05-21 10:00 | NUR ---
NO S/S OF DISTRESS NOTED, REPOSITIONED PT. SAFETY MEASURES IN PLACE, WILL CONT TO MONITOR.
--- NOTE | 2020-05-21 11:49 | NUR ---
DR TOVAR ON THE UNIT. UPDATED ON PT CONDITION, PER DR TOVAR, ORDER BUMEX 2MG IV ONCE.
[2020-05-21] MEDS ORDERED: BUMETANIDE 1 MG/4 ML VIAL IV SCH (12:00)
--- NOTE | 2020-05-21 15:00 | NUR ---
DR ABDI ON THE UNIT. UPDATED ON PTs CONDITION. PER DR ABDI, INCREASE FEEDING TO 50ML/HR.
--- NOTE | 2020-05-21 16:00 | NUR ---
ROUTINE CARE GIVEN, BED BATH, GALLAGHER CARE, CLEAN LINEN AND BLANKETS, TURN AND REPOSITION PT. PT TOLERATED FEEDING WELL. RESIDUAL 10ML. SAFETY MEASURES IN PLACE, WILL CONT TO ASSESS.
--- NOTE | 2020-05-21 18:00 | NUR ---
PT's CONDITION REMAINS UNCHANGED, NO S/S OF DISTRESS NOTED, REPOSITIONED PT. SAFETY MEASURES IN PLACE, WILL CONT TO MONITOR.
--- NOTE | 2020-05-21 19:30 | NUR ---
REPORT RECEIVED FROM AM SHIFT RN FOR CONTINUITY OF CARE. PT ETT TO VENT. SEDATED, RASS -3. AC/PRVC MODE. FIO2 24%TV 500, RATE 12, PEEP 5. IV SITE L RADIAL ARTERIAL LINE AND LAC 20G INFUSING PROPOFOL 20MCG/KG/MIN, AND NS 70ML/HR. OGT TO FEEDING. 0 RESIDUALS NOTED. GALLAGHER CATHETER IN PLACE. DRY WEIGHT 81KG. HOB 30 DEGREES. BED LOCKED IN LOWEST POSITION. WILL CONTINUE TO MONITOR.
--- NOTE | 2020-05-21 21:52 | NUR ---
PT SUCTIONED, ORAL CARE PROVIDED. PT REPOSITIONED. SAFETY PRECAUTIONS IN PLACE. WILL CONTINUE TO MONITOR.
--- NOTE | 2020-05-21 23:23 | NUR ---
PT SUCTIONED, ORAL CARE PROVIDED. PT REPOSITIONED. RESPIRATIONS EVEN AND UNLABORED, CHEST RISE IS SYMMETRICAL. SAFETY PRECAUTIONS IN PLACE. WILL CONTINUE TO MONITOR.
[2020-05-22] VITALS (50 sets, daily range): BP systolic 113–224; BP diastolic 61–104
[2020-05-22] MEDS: Z-GUARD PASTE TP SCH ×2 (00:10→13:00)
[2020-05-22] MEDS: NACL 0.9% 1,000 ML IV SCH ×2 (01:31→12:51)
--- NOTE | 2020-05-22 01:35 | NUR ---
PT SEDATED, RASS -3. RESPIRATIONS EVEN AND UNABLE, CHEST RISE IS SYMMETRICAL. WILL CONTINUE TO MONITOR.
--- NOTE | 2020-05-22 03:25 | NUR ---
LAB AT BEDSIDE
[2020-05-22] MEDS: PIPERACILLIN/TAZOBACTAM 2.25 GM in DEXTROSE 5% 50 ML IV SCH ×3 (04:22→20:38)
--- NOTE | 2020-05-22 04:25 | NUR ---
PT SEDATED, RASS -3. RESPIRATIONS EVEN AND UNLABORED, CHEST RISE IS SYMMETRICAL. WILL CONTINUE TO MONITOR.
[2020-05-22] MEDS: LANSOPRAZOLE 30 MG CAPDR PO SCH (06:15)
--- NOTE | 2020-05-22 06:16 | NUR ---
PT HAD 1 LOOSE BOWEL MOVEMENT. PT CLEANED, REPOSITIONED. GALLAGHER CARE PROVIDED. WILL CONTINUE TO MONITOR.
[2020-05-22 06:39] LABS: BASOPHILS % (AUTO) 0.4 % (0.0-2.0); EOSINOPHILS # (AUTO) 0.2 K/uL (0-0.4); EOSINOPHILS % (AUTO) 2.4 % (0.0-4.0); HEMATOCRIT 40.5 % (36-52); HEMOGLOBIN 14.1 g/dL (12.0-18.0); LYMPHOCYTES # (AUTO) 0.7 K/uL (2.0-11.5); LYMPHOCYTES % (AUTO) 7.2 % (20.5-51.1); MEAN CORPUSCULAR HEMOGLOBIN 31 pg (27-31); MEAN CORPUSCULAR HGB CONC 35 g/dL (33-37); MEAN CORPUSCULAR VOLUME 88.4 fL (80-94); MONOCYTES # (AUTO) 0.5 K/uL (0.8-1.0); MONOCYTES % (AUTO) 5.3 % (1.7-9.3); NEUTROPHILS % (AUTO) 84.7 % (42.2-75.2); PLATELET COUNT (AUTO) 99 K/uL (140-450); RED BLOOD CELL COUNT(AUTO) 4.58 MIL/uL (4.20-6.10); RED CELL DISTRIBUTION WIDTH 14.3 % (11.6-13.7); WHITE BLOOD COUNT (AUTO) 9.5 K/uL (4.8-10.8)
--- NOTE | 2020-05-22 07:04 | NUR ---
REPORT GIVEN TO AM SHIFT RN FOR CONTINUITY OF CARE
[2020-05-22] MEDS: BLOOD GLUCOSE MONITORING 1 DEV DEV FS SCH ×4 (07:30→21:22)
[2020-05-22 07:33] LABS: MAGNESIUM 2.5 mg/dL (1.8-2.4); PHOSPHORUS 4.5 mg/dL (2.5-4.9)
[2020-05-22 07:49] LABS: ANION GAP 20.4 (8-16); CARBON DIOXIDE 17.2 mmol/L (21-32); CHLORIDE 106 mmol/L (98-107); GLUCOSE 125 mg/dL (74-106); POTASSIUM 3.6 mmol/L (3.5-5.1); SODIUM SERUM 140 mmol/L (136-145)
[2020-05-22 08:00] LABS: UREA NITROGEN, BLOOD 80 mg/dL (7-18)
--- NOTE | 2020-05-22 08:00 | NUR ---
RECEIVED BEDSIDE REPORT FROM FORM TAMPER OPERATOR NURSE, RASS -3, PT IS ETT TO VENT AC PRVC FIO2 24%, TV 500, RATE 12, PEEP 5, SATURATING @ 100%. S1S2 NOTED UPON AUSCULTATION, PT HAS PT HAS LT AC 20g RUNNING PROPOFOL 20 MCG/KG/MIN, ASYMPTOMATIC AND PATENT. PT HAS LT RADIAL ARTERIAL LINE, ASYMPTOMATIC. BOWEL SOUNDS ACTIVE IN ALL 4 QUADRANTS. OG-TUBE TO FEED, GLUCERNA 1.2 RUNNING AT 40ML/HR, FWF: 100 Q6HR, RESIDUAL: 0ML. GALLAGHER CATH IN PLACE DRAINING TO GRAVITY. SKIN WARM DRY, SKIN: SCATTERED BRUISING TO BILATERAL UPPER AND LOWER EXTREMITIES. SAFETY MEASURES IN PLACE, BED LOW AND LOCKED, SIDE RAILS UP, CALL LIGHT WITHIN REACH, WILL CONTINUE TO MONITOR.
[2020-05-22 08:01] LABS: CREATININE 4.3 mg/dL (0.6-1.3)
[2020-05-22] MEDS: LACTULOSE 20 GM/30 ML UDC PO SCH (09:00)
[2020-05-22] MEDS: metroNIDAZOLE 500 MG TAB PO SCH ×3 (09:16→17:00)
[2020-05-22] MEDS: METOPROLOL 25 MG TAB PO SCH ×2 (09:17→21:00)
[2020-05-22] MEDS: PROPOFOL 1000 MG/100 ML PREMIX 100 ML IV PRN (09:20)
--- NOTE | 2020-05-22 09:33 | NUR ---
DR HERRERA ON THE UNIT. PER , START SEDATION VACATION, AND IF POSSIBLE, START ON BIPAP. PER DR HERRERA, ORDER CHEST XRAY.
--- NOTE | 2020-05-22 09:37 | NUR ---
HELD PROPOFOL PER SEDATION VACATION PROTOCOL.
--- NOTE | 2020-05-22 10:12 | NUR ---
05/22/20 RD FOLLOW UP COMPLETED PLEASE REFER TO NUTRITION ASSESSMENT UNDER CARE ACTIVITY FOR ESTIMATED NUTRITIONAL NEEDS. 1. CONTINUE TF NEPRO @40MLS/HR. TF WILL PROVIDE 1728KCALS, 78GM PROTEIN - SUFFICIENT TO MEET 100% ESTIMATED NEEDS. 2.CONTINUE WATER FLUSH 100MLS Q8 HRS. 3. CONSULT RD PRN 4. RD TO F/U 2-3 DAYS; HIGH RISK ALAN CASTRO RD
--- NOTE | 2020-05-22 10:15 | NUR ---
PTs CURRENT VITALS: HR 77, BP 191/83, SPO2 100% RR 16. WILL CONT TO ASSESS. Addendum: 05/22/20 at 1025 by Deb Villareal RN RN ABLE TO FOLLOW VERY SIMPLE COMMANDS, YES/NO SIMPLE QUESTIONS.
--- NOTE | 2020-05-22 10:18 | NUR ---
PER REQUEST OF PT PLACED ON CPAP 5 PS 10 FIO2 24%. WILL OBTAIN ABG AFTER SBT.
--- NOTE | 2020-05-22 11:50 | NUR ---
ABG RESULTS GIVEN TO AND EXPLAINED PT STATUS ON SBT. WEANING PARAMETERS GIVEN TO PHYSICIAN AND HE STATES TO EXTUBATE PT.
--- NOTE | 2020-05-22 12:03 | NUR ---
PT EXTUBATED AND TOLERATING WELL. PT PLACED ON 3L NC SPO2 100%, NURSE PABLO BEDSIDE. NO STRIDOR HEARD ON AUSCULTATION. WILL CONTINUE TO MONITOR.
--- NOTE | 2020-05-22 12:19 | NUR ---
PT WAS EXTUBATED BY RT, CURRENTLY PT HAS EMESIS, REMOVED OG-TUBE AND WILL INSERT NG-TUBE. VS: HR 83, BP 189/84, SPO2 100% ON 3L NC, RR 20. WILL MONITOR CLOSELY
--- NOTE | 2020-05-22 12:44 | NUR ---
PT HAS SMALL EMESIS, PT STATES NAUSEATED. ADMINISTERED ZOFRAN, WILL CONT TO ASSESS CLOSELY
--- NOTE | 2020-05-22 13:15 | NUR ---
NO S/S OF DISTRESS NOTED. SAFETY MEASURES IN PLACE, WILL CONT TO MONITOR.
--- NOTE | 2020-05-22 13:50 | NUR ---
PT HAD BM, CLEANED PT, GALLAGHER CARE, NEW LINEN, TURNED AND REPOSITIONED PT. PT TOLERATED IT WELL. WILL CONT TO MONITOR. SAFETY MEASURES IN PLACE
--- NOTE | 2020-05-22 14:00 | NUR ---
ATTEMPTED TO PLACE NG-TUBE, UNSUCCESSFUL. PER DR AMADOR, HE WILL PUT ORDERS IN FOR NPO AND SWALLOW EVAL.
--- NOTE | 2020-05-22 16:00 | NUR ---
PTs CONDITION REMAINS UNCHANGED, WILL CONT TO MONITOR.
--- NOTE | 2020-05-22 18:15 | NUR ---
CALLED FAMILY BACK AND UPDATED ON PTs CONDITION. TURNED ON PTs CELL PHONE FOR FAMILY TO TALK TO PATIENT.
--- NOTE | 2020-05-22 19:50 | NUR ---
DR. AMADOR IN THE UNIT. UPDATED ABOUT PT CONDITION. MD ORDERED PRN IV METOPROLOL, CONTINUE A-DINORAH FOR CLOSE MONITORING.
--- NOTE | 2020-05-22 20:00 | NUR ---
RECEIVED REPORT FORM DAY SHIFT RN. PT ON 2L NASAL CANNULA. SATURATION ON A 100%. LUNG SOUNDS DIMINISHED UPON AUSCULTATION. RESPIRATION EVEN AND UNLABORED. PT HAS LT AC 20g INFUSING NS @ 70MLS/HR, LINE ASYMPTOMATIC AND PATENT. PT HAS LT RADIAL ARTERIAL LINE, ASYMPTOMATIC AND PATENT. BOWEL SOUNDS ACTIVE. PT NPO EXCEPT MEDS. PENDING SWALLOW EVALUATION. GALLAGHER CATH IN PLACE DRAINING TO GRAVITY. SKIN WARM AND DRY. SCATTERED BRUISING OBSERVED. SAFETY MEASURES IN PLACE, BED IN LOWEST POSITION, SIDE RAILS UP, CALL LIGHT WITHIN REACH, WILL CONTINUE TO MONITOR.
[2020-05-22] MEDS ORDERED: METOPROLOL 5 MG/5 ML VIAL IV PRN (20:20)
--- NOTE | 2020-05-22 21:03 | NUR ---
SCHEDULED PO METOPROLOL NON ADMINISTERED. PRN IV METOPROLOL GIVEN. WILL CONTINUE TO MONITOR PT.
[2020-05-23] VITALS (18 sets, daily range): BP systolic 90–180; BP diastolic 58–92
--- NOTE | 2020-05-23 | NUR ---
PT RESPIRATION EVEN AND UNLABORED. NO DISTRESS OBSERVED. TURNED AND REPOSITIONED. WILL CONTINUE TO MONITOR.
[2020-05-23] MEDS: Z-GUARD PASTE TP SCH ×2 (01:09→13:00)
--- NOTE | 2020-05-23 02:00 | NUR ---
PT CONDITION REMAINS UNCHANGED. WILL CONTINUE TO MONITOR.
[2020-05-23] MEDS: NACL 0.9% 1,000 ML IV SCH ×2 (03:09→21:52)
[2020-05-23] MEDS: PIPERACILLIN/TAZOBACTAM 2.25 GM in DEXTROSE 5% 50 ML IV SCH ×3 (05:00→21:03)
--- NOTE | 2020-05-23 05:00 | NUR ---
PT HAD A BOWEL MOVEMENT. PT CLEANED. SPONGE BATH PROVIDED. WILL CONTINUE TO MONITOR.
[2020-05-23] MEDS: LANSOPRAZOLE 30 MG CAPDR PO SCH (06:04)
[2020-05-23 06:37] LABS: BASOPHILS % (AUTO) 0.4 % (0.0-2.0); EOSINOPHILS # (AUTO) 0.3 K/uL (0-0.4); EOSINOPHILS % (AUTO) 2.6 % (0.0-4.0); HEMATOCRIT 37.4 % (36-52); HEMOGLOBIN 12.9 g/dL (12.0-18.0); LYMPHOCYTES # (AUTO) 0.7 K/uL (2.0-11.5); LYMPHOCYTES % (AUTO) 6.8 % (20.5-51.1); MEAN CORPUSCULAR HEMOGLOBIN 30 pg (27-31); MEAN CORPUSCULAR HGB CONC 35 g/dL (33-37); MEAN CORPUSCULAR VOLUME 86.6 fL (80-94); MONOCYTES # (AUTO) 0.5 K/uL (0.8-1.0); MONOCYTES % (AUTO) 4.9 % (1.7-9.3); NEUTROPHILS # (AUTO) 8.5 K/uL (1.8-7.7); NEUTROPHILS % (AUTO) 85.3 % (42.2-75.2); PLATELET COUNT (AUTO) 173 K/uL (140-450); RED BLOOD CELL COUNT(AUTO) 4.32 MIL/uL (4.20-6.10); RED CELL DISTRIBUTION WIDTH 14.1 % (11.6-13.7)
[2020-05-23 06:51] LABS: ALBUMIN 1.7 g/dL (3.4-5.0); BILIRUBIN,DIRECT 2.1 mg/dL (0.0-0.3); TOTAL BILIRUBIN 2.5 mg/dL (0.0-1.0)
[2020-05-23 06:56] LABS: MAGNESIUM 2.5 mg/dL (1.8-2.4)
[2020-05-23] MEDS: BLOOD GLUCOSE MONITORING 1 DEV DEV FS SCH ×4 (07:30→21:03)
--- NOTE | 2020-05-23 07:35 | NUR ---
RECEIVED BEDSIDE REPORT FROM BAT PERSON NURSE , PT AWAKE O X 1-2, SELF AND BIRTHDAY, LOCATION "[facility]', REORIENTED, SPEAKS CLEARLY DENIES PAIN, RESPIRATION EVEN UNLABORED ON 3L NC O2, SKIN WARM DRY COLOR WNL SLIGHTLY YELLOW, SATURATING 99%, NO SOB NOTED, PT LEFT RADIAL ART LINE IN PLACE DRESSINGS CLEAN DRY AND INTACT, TRANSDUCER ZERO'D,PIV 20G TO LEFT AC, INFUSING NS AT 70. SITE WNL, GALLAGHER CATH IN PLACE DRAINING DARK YELLOW URINE TO GRAVITY, INITIAL ASSESSMENT DONE, ALL SAFETY MEASURES IN PLACE, PLAN OF CARE REVIEWED, WILL CONTINUE TO MONITOR.
[2020-05-23 07:42] LABS: ANION GAP 18.7 (8-16); CARBON DIOXIDE 16.7 mmol/L (21-32); CHLORIDE 112 mmol/L (98-107); CREATININE 3.8 mg/dL (0.6-1.3); GLUCOSE 84 mg/dL (74-106); POTASSIUM 3.4 mmol/L (3.5-5.1); SODIUM SERUM 144 mmol/L (136-145)
[2020-05-23 07:49] LABS: UREA NITROGEN, BLOOD 83 mg/dL (7-18)
[2020-05-23] MEDS: metroNIDAZOLE 500 MG TAB PO SCH ×3 (08:00→17:00)
[2020-05-23] MEDS: METOPROLOL 25 MG TAB PO SCH ×2 (08:00→21:00)
[2020-05-23] MEDS: LACTULOSE 20 GM/30 ML UDC PO SCH (09:00)
--- NOTE | 2020-05-23 09:05 | NUR ---
BEDSIDE SWALLOW SCREENING DONE, PT FOLLOWS COMMANDS AND SWALLOWS WELL WITHOUT PROBLEM, NO COUGHING OR CHOKING, NO EVIDENCE OF ASPIRATION WITH SMALL AMT OF WATER, MEDS GIVEN CRUSHED WITH JELLO, PT RAFI WELL
--- NOTE | 2020-05-23 10:35 | NUR ---
LARGE LOOSE BM, BED BATH GIVEN, PERICARE DONE, Z GUARD APPLIED TO [facility]A AREA.
--- NOTE | 2020-05-23 10:51 | NUR ---
DR NASREEN UGARTE ONCALL FOR DR TOVAR, NOTIFIED OF PT'S FAMILY'S REQUEST TO SPEAK WITH INTERNAL CONTROLS MANAGER, DR UGARTE WILL CALL DAUGHTER TODAY.
[2020-05-23] MEDS ORDERED: KCL 20 MEQ/WATER INJ PREMIX 100 ML IV SCH (14:00)
--- NOTE | 2020-05-23 16:02 | NUR ---
LARGE BM, PERICARE DONE, GALLAGHER CARE DONE, ORAL CARE DONE. PT ASSISTED WITH PHONECALL WITH FAMILY MEMBERS
--- NOTE | 2020-05-23 17:05 | NUR ---
DR HERRERA AT BEDSIDE, PT DOWNGRAGED TO MEDSURG STATUS AT THIS TIME.
--- NOTE | 2020-05-23 18:30 | NUR ---
INCREASED BP 180/88, HYDRALAZINE GIVEN PER PRN ORDER
[2020-05-23] MEDS: hydrALAZINE 25 MG TAB PO PRN (18:56)
--- NOTE | 2020-05-23 20:00 | NUR ---
RECEIVED REPORT FORM DAY SHIFT RN. PT IS AWAKE AND ABLE TO ANSWER SIMPLE QUESTIONS. PT DENIES PAIN. PT ON ROOM AIR. SATURATION ON A 100%. LUNG SOUNDS DIMINISHED UPON AUSCULTATION. RESPIRATION EVEN AND UNLABORED. PT HAS LT AC 20g INFUSING NS @ 70MLS/HR, LINE ASYMPTOMATIC AND PATENT. PT HAS LT RADIAL ARTERIAL LINE, ASYMPTOMATIC. BOWEL SOUNDS ACTIVE. PT NPO EXCEPT MEDS. PENDING SWALLOW EVALUATION. GALLAGHER CATH IN PLACE DRAINING TO GRAVITY. SKIN WARM AND DRY. SCATTERED BRUISING OBSERVED. SAFETY MEASURES IN PLACE, BED IN LOWEST POSITION, SIDE RAILS UP, CALL LIGHT WITHIN REACH, WILL CONTINUE TO MONITOR.
--- NOTE | 2020-05-23 21:06 | NUR ---
LEFT RADIAL ARTERIAL LINE REMOVED, PRESSURE DRESSING APPLIED. PT HAS NO COMPLAINTS MADE.
--- NOTE | 2020-05-23 22:30 | NUR ---
RECEIVED PT FROM ICU . AA0 X 2 TO 3 - BUT STILL CAPABLE TO FOLLOW SIMPLE COMMANDS , IV SITE INTACT AND PATENT , LOW ATIF SCALE , W/ OLD BRUISES ONBOTH UPPER ARMS , W/ FC - DRAINING CLEAR U. O . NPO EXCEPTS MEDS .LOW ATIF SCALE . SAFETY MEASURES IN PLACE -BED ALARM ON . POC DISCUSSED BUT POOR UNDERSTANDING DUE TO MENTAL STATUS . WILL CONT. TO MONITOR .
[2020-05-24] VITALS: BP 125/90
[2020-05-24] MEDS: Z-GUARD PASTE TP SCH ×2 (01:00→13:00)
--- NOTE | 2020-05-24 04:00 | NUR ---
O2 SAT WNL . NO S/SX OF ACUTE DISTRESS NOTED
[2020-05-24] MEDS: PIPERACILLIN/TAZOBACTAM 2.25 GM in DEXTROSE 5% 50 ML IV SCH ×3 (05:09→21:00)
--- NOTE | 2020-05-24 06:00 | NUR ---
AWAKE , FLACC 0
[2020-05-24] MEDS: BLOOD GLUCOSE MONITORING 1 DEV DEV FS SCH ×4 (06:22→23:00)
[2020-05-24] MEDS: LANSOPRAZOLE 30 MG CAPDR PO SCH (06:30)
--- NOTE | 2020-05-24 07:10 | NUR ---
REC'D REPORT FROM GREASE MAKER NURSE, PT CURRENTLY NPO EXCEPT MEDICATIONS. RA. DRN. SAUER.
--- NOTE | 2020-05-24 07:38 | NUR ---
ENDORSED TO AM SHIFT - PT - STABLE
[2020-05-24] MEDS: NACL 0.9% 1,000 ML IV SCH ×2 (07:55→22:03)
[2020-05-24 08:00] VITALS: BP 157/82
--- NOTE | 2020-05-24 10:35 | NUR ---
PT. ADMITTED WITH LOW ATIF SCALE AT RISK, CONTINUE TO FOLLOW PRESSURE INJURY PREVENTION INTERVENTIONS. -TURN AND REPOSITION PATIENT Q 2H -ASSESS AND MONITOR SKIN CONDITION DURING POSITION CHANGE -OFFLOAD BILATERAL HEELS BY PLACING PILLOWS UNDER CALVES AT ALL TIMES, UNLESS OTHERWISE CONTRAINDICATED -PRESSURE REDISTRIBUTION BY PLACING PILLOWS AND OFFLOADING SACRALCOCCYX -KEEP SKIN CLEAN AND DRY AT ALL TIMES.
[2020-05-24] MEDS: LACTULOSE 20 GM/30 ML UDC PO SCH (11:10)
[2020-05-24] MEDS: METOPROLOL 25 MG TAB PO SCH ×2 (11:10→21:23)
[2020-05-24] MEDS: metroNIDAZOLE 500 MG TAB PO SCH (11:10)
[2020-05-24] MEDS: DEXT 5% /NACL 0.9% 1,000 ML IV SCH (12:55)
--- NOTE | 2020-05-24 14:10 | NUR ---
PT'S IV CATHETER OUT OF VESSEL, LEAKING, WILL REINSTATE IV LINE
--- NOTE | 2020-05-24 16:14 | NUR ---
*ST: Bedside Swallow Evaluation* Pt is 79 yo M BIBA from home 05/17/2020 c/o abdominal pain, +vomiting. Pts reports Pt had abdominal pain x5 days c 2 coffee-ground emesis. Work-up noted ammonia level >300 c GI suspecting cholangitis, r/o pancreaticobiliary neoplasm. After endoscopic retrograde cholangiogram (ERCP) c sphincterotomy of common bile duct sphincter & removal of stones, Pt became hypotensive, transferred to ICU 05/18/2020 still intubated. Pt extubated 05/22/2020. PMHx DM, HTN. 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 CT Abd 05/19 - no evid of pneumoperitoneum or bowel perforation; pancolitis of various etiologies; colonic diverticulosis w/o definite diverticulitis; small bilat pleural effusion c bibasilar dependent ATX. CXR 05/23 - borderline pulmonary vascular congestion; perihilar pulmonary opacities may rep interstitial edema, ATX, or PNA. Cleared with RNLatesha, for BDSE. Per RN, Pt had some thin liquids this AM with some intermittent coughing. Noted Pt on Clear Liquids diet at this time. Pt seen bedside, awake, disoriented, verbalized in soft but clear vocal quality, on room air. Pt verbalized that he was at home. Noted clean, moist oral mucosa. 4oz canned MS pears, 4oz apple sauce, and ~4oz thin water given by REDUCER as Pt did not engage in self-feeding motion. Pt stripped 100% of boli from tsp, engaged in straw sip thin, no anterior spillage, engaged in rotary mastication, no residue, no overt coughing nor throat clearing with solids. Pt did have episode of cough x1 with initial trial of thin to which Pt verbalized, "That was too much." With subsequent trials of thin by single straw sip, Pt had consistent belching/burping after swallow but no cough. Vocal quality unchanged post POs given. Plan of care d/w pt and pts RN. P: Rec Mechanical Soft/Thin Liquids straw 1 sip at a time, feed-assist Follow safe swallow strategies, oral care, aspiration precautions Nsg to monitor and notify REDUCER of acute changes in status -Shanda Wilks MA, [facility]-RED[facility] Addendum: 05/24/20 at [address] Amended: Links added.
--- NOTE | 2020-05-24 17:00 | NUR ---
SEVERAL ATTEMPTS WERE MADE BY MYSELF AND DIFFERENT NURSES TO ESTABLISH IV ACCESS, VEIN FINDER WAS USED TO ATTEMPT TO ESTABLISH IV LINE UNSUCCESSFUL. NOTIFIED ECONOMIC MANAGER AND ACTUARY CLERK OF LACK OF ACCESS. MESSAGE WAS SENT TO DR. GRIMALDO NOTIFIYING HIM SINCE PT IS TOO EDEMATOUS, NO IV SITE CAN BE ESTABLISHED.
--- NOTE | 2020-05-24 19:55 | NUR ---
ENDORSED PT TO TOOLSMITH NURSE, PT ON RA. FULL LIQUIDS, PT HAS NO IV ACCESS AT THIS TIME. STABLE. CALL LIGHT WITHIN REACH.
[2020-05-24 20:00] VITALS: BP 140/90
--- NOTE | 2020-05-24 20:30 | NUR ---
PT HAS NO IV ACCESS - DX : SEPSIS - BEEN ON ICU - DUE TO SEVERE HYPOTENSIVE . WILL REFER TO DR. GRIMALDO - FOR POSSIBLE PICC LINE .
--- NOTE | 2020-05-24 21:07 | NUR ---
GOT TEL . CONSENT FROM PT'S ALTAF FOR MIDLINE INSERTION . TEL CONSENT WITNESSED BY NURSE LADARIUS .
--- NOTE | 2020-05-25 | NUR ---
FEED PT - GOOD SWALLOWING NOTED AND GOOD APPETITE . NO DISTRESS NOTED AT THIS TIME . O2 SAT WNL .
[2020-05-25] MEDS: Z-GUARD PASTE TP SCH ×2 (01:00→13:14)
--- NOTE | 2020-05-25 04:00 | NUR ---
MADE ROUNDS , NO S/SX OF ACUTE DISTRESS NOTED .
[2020-05-25] MEDS: PIPERACILLIN/TAZOBACTAM 2.25 GM in DEXTROSE 5% 50 ML IV SCH ×2 (05:00→13:15)
--- NOTE | 2020-05-25 05:00 | NUR ---
BP RE CHECKED - 170/ 100 - WILL GIVE APRESOLINE / TAB ORDERED
[2020-05-25] MEDS: hydrALAZINE 25 MG TAB PO PRN (05:54)
[2020-05-25] MEDS: LANSOPRAZOLE 30 MG CAPDR PO SCH (05:54)
[2020-05-25 06:29] LABS: BASOPHILS # (AUTO) 0.1 K/uL (0.00-0.22); BASOPHILS % (AUTO) 0.5 % (0.0-2.0); EOSINOPHILS # (AUTO) 0.2 K/uL (0-0.4); EOSINOPHILS % (AUTO) 1.7 % (0.0-4.0); HEMATOCRIT 37.3 % (36-52); HEMOGLOBIN 12.6 g/dL (12.0-18.0); LYMPHOCYTES % (AUTO) 7.9 % (20.5-51.1); MEAN CORPUSCULAR HEMOGLOBIN 30 pg (27-31); MEAN CORPUSCULAR HGB CONC 34 g/dL (33-37); MEAN CORPUSCULAR VOLUME 87.7 fL (80-94); MONOCYTES # (AUTO) 0.8 K/uL (0.8-1.0); MONOCYTES % (AUTO) 6.5 % (1.7-9.3); NEUTROPHILS # (AUTO) 10.4 K/uL (1.8-7.7); NEUTROPHILS % (AUTO) 83.4 % (42.2-75.2); PLATELET COUNT (AUTO) 339 K/uL (140-450); RED BLOOD CELL COUNT(AUTO) 4.25 MIL/uL (4.20-6.10); RED CELL DISTRIBUTION WIDTH 14.5 % (11.6-13.7); WHITE BLOOD COUNT (AUTO) 12.5 K/uL (4.8-10.8)
--- NOTE | 2020-05-25 07:36 | NUR ---
ENDORSED - PT - STABLE - INFORMED DR. ABDI PT HAD SMALL AMT OF DARK BLACK STOOL - ENDORSED TO AM SHIFT .
--- NOTE | 2020-05-25 07:41 | NUR ---
RECEIVED REPORT FROM NIGHTSHIFT NURSE. PT RESTING IN BED. ABLE TO MAKE NEEDS KNOWN. RESPIRATIONS EVEN AND UNLABORED WITH NO SOB OR RESPIRATORY DISTRESS. SKIN WARM AND DRY TO TOUCH. IV SITE IN LAC 20G IS CLEAN, DRY, AND INTACT. SAFETY MEASURES IN PLACE. WILL CONTINUE TO MONITOR
[2020-05-25] MEDS: BLOOD GLUCOSE MONITORING 1 DEV DEV FS SCH ×3 (07:48→17:14)
[2020-05-25 08:00] VITALS: BP 163/92
[2020-05-25 08:59] LABS: ALBUMIN 2.2 g/dL (3.4-5.0); ANION GAP 19.6 (8-16); ASPARTATE AMINOTRANSFERASE 49 U/L (15-37); CARBON DIOXIDE 18.5 mmol/L (21-32); CHLORIDE 118 mmol/L (98-107); GLUCOSE 117 mg/dL (74-106); POTASSIUM 3.1 mmol/L (3.5-5.1); SODIUM SERUM 153 mmol/L (136-145); TOTAL BILIRUBIN 1.8 mg/dL (0.0-1.0)
[2020-05-25] MEDS: METOPROLOL 25 MG TAB PO SCH (09:20)
[2020-05-25] MEDS: LACTULOSE 20 GM/30 ML UDC PO SCH (09:21)
--- NOTE | 2020-05-25 09:25 | NUR ---
ADMINISTERED SCHED MED PRESCRIBED PER MD ORDER. PT TOLERATED WELL. MEDICATION EDUCATION PERFORMED. PT VERBALIZED UNDERSTANDING. SAFETY MEASURES IN PLACE. WILL CONTINUE TO MONITOR
--- NOTE | 2020-05-25 11:30 | NUR ---
PT BLOOD SUGAR IS 107. NO INSULIN NEEDED AT THIS TIME. SAFETY MEASURES IN PLACE. WILL CONTINUE TO MONITOR
[2020-05-25 11:41] LABS: UREA NITROGEN, BLOOD 71 mg/dL (7-18)
--- NOTE | 2020-05-25 12:29 | NUR ---
1140: RECEIVED A CALL FROM [facility], INFORMING ME OF CRITICAL LAB BUN 71. DR. GRIMALDO MADE AWARE.
[2020-05-25] MEDS: NACL 0.9% 1,000 ML IV SCH (12:52)
[2020-05-25] MEDS: DEXT 5% /NACL 0.9% 1,000 ML IV SCH (13:14)
--- NOTE | 2020-05-25 13:15 | NUR ---
PT RESTING IN BED. ABLE TO MAKE NEEDS KNOWN. RESPIRATIONS EVEN AND UNLABORED WITH NO SOB OR RESPIRATORY DISTRESS. SKIN WARM AND DRY TO TOUCH. SAFETY MEASURES IN PLACE. WILL CONTINUE TO MONITOR
--- NOTE | 2020-05-25 15:20 | NUR ---
PT HAS MIDLINE INSERTED TODAY FROM PICC LINE NURSE IN R UPPER ARM IS CLEAN, DRY, AND INTACT. SAFETY MEASURES IN PLACE. WILL CONTINUE TO MONITOR
[2020-05-25] MEDS ORDERED: PIPE50SO5 IV (15:30)
[2020-05-25] MEDS ORDERED: METO25TA PO (15:30)
--- NOTE | 2020-05-25 16:30 | NUR ---
PT BLOOD SUGAR IS 128. NO INSULIN NEEDED AT THIS TIME. SAFETY MEASURES IN PLACE. WILL CONTINUE TO MONITOR
--- NOTE | 2020-05-25 17:32 | NUR ---
05/25/20 RD FOLLOW UP COMPLETED PLEASE REFER TO NUTRITION ASSESSMENT UNDER CARE ACTIVITY FOR ESTIMATED NUTRITIONAL NEEDS. 1. RECOMMEND MECHANICAL SOFT DIET TOLERATED 2. RECOMMEND ENSURE IF PO INTAKE <75% 3. RD TO FOLLOW-UP 3-5 DAYS, MODERATE RISK SOHAIL GUEVARA, RD
--- NOTE | 2020-05-25 18:15 | NUR ---
CALLED [facility] FOR REPORT 6 DIFFERENT TIMES AND NOBODY IS ANSWERING THE PHONE. PT TO BE PICKED UP AT 1900. WILL CONTINUE TO MONITOR
[2020-05-25] MEDS ORDERED: AMOX-999 PO (18:46)
--- NOTE | 2020-05-25 19:00 | NUR ---
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 REPORT GIVEN TO MEDIC. PT PULLED OUT HIS R UPPER ARM PICC LINE. PT TO HAVE PO ATB AT [facility] [place]. CALLED A 9TH TIME AT [facility] [place] AND STILL NOBODY IS PICKING UP. WILL CONTINUE TO MONITOR. GATHERED ALL OF PATIENTS BELONGINGS. PT IN GOWN. PT STABLE TO GO TO [facility] [place]
--- NOTE | 2020-05-25 19:51 | NUR ---
CALLED [facility] FOR THE 11TH AND 12TH TIME AND NOBODY IS PICKING UP THE PHONE. WILL ENDORSE TO NIGHTSHIFT
== END 2020-05-25 19:00 | DRG 870 ==
LOC: MED 07:07 → MTU 14:05 → MIC 05-18 22:07 → MTU 05-23 22:00
PROC: 0BH17EZ Insertion of Endotracheal Airway into Trachea, Via Natural or Artificial Opening (ICD-10-PCS; 2020-05-18)
PROC: 0FC98ZZ Extirpation of Matter from Common Bile Duct, Via Natural or Artificial Opening Endoscopic (ICD-10-PCS; 2020-05-18)
PROC: 0F798ZZ Dilation of Common Bile Duct, Via Natural or Artificial Opening Endoscopic (ICD-10-PCS; 2020-05-18)
PROC: BF101ZZ Fluoroscopy of Bile Ducts using Low Osmolar Contrast (ICD-10-PCS; 2020-05-18)
PROC: 5A1955Z Respiratory Ventilation, Greater than 96 Consecutive Hours (ICD-10-PCS; principal; 2020-05-18 08:30)
PROC: 05HY33Z Insertion of Infusion Device into Upper Vein, Percutaneous Approach (ICD-10-PCS; 2020-05-25)
PROC: B54MZZA Ultrasonography of Right Upper Extremity Veins, Guidance (ICD-10-PCS; 2020-05-25)
DX: A41.51 Sepsis due to Escherichia coli [E. coli] (principal); N17.0 Acute kidney failure with tubular necrosis; J96.01 Acute respiratory failure with hypoxia; R65.21 Severe sepsis with septic shock; K57.31 Diverticulosis of large intestine without perforation or abscess with bleeding; I21.A1 Myocardial infarction type 2; E87.1 Hypo-osmolality and hyponatremia; K80.30 Calculus of bile duct with cholangitis, unspecified, without obstruction; N39.0 Urinary tract infection, site not specified; Z66 Do not resuscitate; D64.9 Anemia, unspecified; E11.9 Type 2 diabetes mellitus without complications; I10 Essential (primary) hypertension; I48.0 Paroxysmal atrial fibrillation; Z20.822 Contact with and (suspected) exposure to COVID-19; M47.816 Spondylosis without myelopathy or radiculopathy, lumbar region; K75.9 Inflammatory liver disease, unspecified; K72.90 Hepatic failure, unspecified without coma; E87.6 Hypokalemia; D69.6 Thrombocytopenia, unspecified; Z90.49 Acquired absence of other specified parts of digestive tract
CPT/HCPCS: 36415; 70450; 71045; 76705; 76770; 80048; 80053; 80076; 80202; 80305; 81001; 82140; 82948; 83036; 83690; 83735; 83880; 84100; 84134; 84436; 84443; 84484; 85025; 85610; 85730; 86301; 86886; 86900; 86901; 87040; 87081; 87086; 87804; 92610; 93005; 94003; 96361; 96365; 96375; 99285; C1769; C1773; J1265; J1644; J1940; J2060; J2370; J2405; J2543; J2704; J3370; J3480; J3490; J7030; J7060; U0003